=== PATIENT | female | born 1980 | race Hispanic/Latino ===

== ENCOUNTER 2021-04-25 03:25 | Emergency (ER) | payer OTHER ==
[~2021-04-25] VITALS: Ht 157.5 cm; Wt 97.5 kg
[2021-04-25 03:56] VITALS: BP 121/64
[2021-04-25 04:54] VITALS: BP 120/59
[2021-04-25] MEDS ORDERED: IBUP-2076 PO (05:15)
[2021-04-25] MEDS ORDERED: OCTYL 2-CYANOACRYLATE 1 EACH TP ONE (05:22)
== END 2021-04-25 05:53 | disposition home or self-care (01) ==
LOC: EDH 03:30
DX: S91.312A Laceration without foreign body, left foot, initial encounter (principal); S90.32XA Contusion of left foot, initial encounter; Y08.89XA Assault by other specified means, initial encounter; Y93.89 Activity, other specified; Y92.89 Other specified places as the place of occurrence of the external cause; Y99.8 Other external cause status
CPT/HCPCS: 12001; 73630

== ENCOUNTER 2021-09-08 21:41 | Emergency (ER) | payer OTHER ==
[~2021-09-08] VITALS: Ht 157.5 cm; Wt 101.6 kg
[~2021-09-08 21:41] MED LIST: IBUP-2076 PO
[2021-09-08 22:25] LABS: BILIRUBIN,URINE Moderate (NEGATIVE); GLUCOSE, URINE (UA) Negative (NEGATIVE); LEUKOCYTE ESTERASE ,URINE Large (NEGATIVE); NITRATE,URINE Positive (NEGATIVE); OCCULT BLOOD,URINE Moderate (NEGATIVE); PROTEIN,URINE POS 2+ mg/dL (NEGATIVE); UROBILINOGEN,URINE 0.2 mg/dL (0.2-1.0)
[2021-09-08 22:26] LABS: HCG,QUAL RESULT NEGATIVE (NEGATIVE)
[2021-09-08 22:28] LABS: APPEARANCE,URINE CLOUDY (CLEAR); COLOR,URINE AMBER (YELLOW)
[2021-09-08] MEDS ORDERED: KETOROLAC 30MG VIAL (30MG/ML) IM PRN (22:30)
[2021-09-08] MEDS ORDERED: CEFTRIAXONE 1G VIAL IM ONE (22:30)
[2021-09-08 22:48] LABS: KETONES,URINE NEGATIVE (NEGATIVE)
[2021-09-08 22:51] LABS: BACTERIA,URINE Few /HPF (None Seen); RBC,URINE >100 /HPF (0-1); WBC,URINE 26-50 /HPF (0-1)
[2021-09-08] MEDS ORDERED: ACET-3194 PO (23:43)
[2021-09-08] MEDS ORDERED: IBUP-2070 PO (23:43)
[2021-09-08] MEDS ORDERED: NITR100C4 PO (23:43)
[2021-09-08] MEDS ORDERED: PHEN-847 PO (23:43)
[2021-09-08] MEDS ORDERED: LIDOCAINE HCL-MPF 1% 2ML VIAL ONE (23:49)
[2021-09-08] MEDS ORDERED: CEFTRIAXONE 1G VIAL ONE (23:49)
[2021-09-09 00:08] VITALS: BP 112/68
== END 2021-09-09 00:09 | disposition home or self-care (01) ==
LOC: EDH 21:41
DX: N39.0 Urinary tract infection, site not specified (principal)
CPT/HCPCS: 81001; 81025; 87088; 96372 ×2; 99284; J0696; J1885; J3490

== ENCOUNTER 2023-04-11 19:50 | Emergency (ER) | payer OTHER ==
[~2023-04-11] VITALS: Ht 177.8 cm; Wt 98.9 kg
[~2023-04-11 19:50] MED LIST changes: +ACET-3194 PO; +IBUP-2070 PO; +NITR100C4 PO; +PHEN-847 PO
[2023-04-11 19:54] VITALS: BP 115/62
[2023-04-11] MEDS ORDERED: IBUPROFEN 600 MG TABLET PO ONE (23:00)
[2023-04-11] MEDS ORDERED: ACETAMINOPHEN 500 MG TABLET PO ONE (23:00)
== END 2023-04-11 23:52 | disposition home or self-care (01) ==
LOC: EDH 19:50
DX: S93.492A Sprain of other ligament of left ankle, initial encounter (principal); F17.200 Nicotine dependence, unspecified, uncomplicated; Z79.899 Other long term (current) drug therapy; Z98.890 Other specified postprocedural states; X50.1XXA Overexertion from prolonged static or awkward postures, initial encounter; Y93.89 Activity, other specified; Y92.89 Other specified places as the place of occurrence of the external cause; Y99.8 Other external cause status
CPT/HCPCS: 73600